=== PATIENT | male | born 1990 | race Caucasian/White ===

== ENCOUNTER 2024-12-04 09:48 | Outpatient (OUT) | payer OTHER, SELFPAY ==
--- OUTSIDE RECORDS SUMMARY | 2024-12-04 09:56 | XMS_ITS | Clinical Summary ---
Author Organization [facility] tem Address [id number] [address] [place] [address] Care Team Providers Care Wing Scorer Name Role Phone No Pcp, No Pcp Primary Care Provider Unavailabl e Allergies No known active allergies Medications ibuprofen (MOTRIN) 800 mg tablet Take 1 tablet (800 mg total) by mouth every 8 (eight) hours as needed for pain. 30 tablet 10/13/2024 Active Active Problems No known active problems Encounters Date Type Department Care Team Description 10/13/2024 4:53 PM EDT - 10/13/2024 7:31 PM EDT Emergency [facility] - Emergency [address] [place] [id number] Noemí Conde DO Epididymitis (Primary Dx) Discharge Disposition: Home 10/13/2024 Travel from Last 3 Months Immunizations Immunization Administration Dates Next Due Tdap 10/18/2016 Social History Tobacco Use Types Packs/Day Years Used Date Smoking Tobacco: Never Smokeless Tobacco: Never Alcohol Use Standard Drinks/Week Comments No 0 (1 standard drink = 0.6 oz pur e alcohol) Childcare Answer Date Recorded Childcare Unknown 09/19/2018 Employment Answer Date Recorded Employment Unknown 09/19/2018 Hunger Screening Answer Date Recorded Within the past 12 months we worried whether our food would run out before we got money to buy more. Never True 10/13/2024 Within the past 12 months th e food we bought just didn't last and we didn't have money to get more. Never True 10/13/2024 Purpose - Life Answer Date Recorded Purpose and direction in life Unknown Sex and Gender Information Value Date Recorded Sex Assigned at Not on file Legal Sex Male 11:48 AM EDT Gender Identity Not on file Sexual Orientation Not on file Last Filed Vital Signs Vital Sign Reading Time Taken Comments Blood Pressure 131/83 10/13/2024 7:20 PM EDT Pulse 71 10/13/2024 7:20 PM EDT Temperature 36.8 C (98.2 F) 10/13/2024 5:00 PM EDT Respiratory Rate 17 10/13/2024 5:00 PM EDT Oxygen Saturation 98% 10/13/2024 7:20 PM EDT Inhaled Oxygen Concentration - - Weight 117.9 kg (260 lb) 10/13/2024 5:00 PM EDT Height 188 cm (6' 2 ) 10/13/2024 5:00 PM EDT Body Mass Index 33.38 10/13/2024 5:00 PM EDT Plan of Treatment Health Maintenance Due Date Last Done Comments Depression Screening 2004 Adult BMI Follow Up Plan 2010 Influenza Vaccine 12/09/2024 Adult BMI Screening 10/13/2025 10/13/2024 Tobacco Screening 10/13/2025 10/13/2024 DTaP,Tdap and Td Vaccines (6 - Td or Tdap) 10/18/2026 10/18/2016, 11/13/1998, 09/19/1997, Additional history exists Medical Devices Not on file Procedures Procedure Name Priority Date/Time Associated Diagnosis Comments US SCROTUM WITH DUPLEX STAT 10/13/2024 5:57 PM EDT POCT NURSING URINE MACROSCOPIC UA Routine 10/13/2024 5:27 PM EDT ER EXTRA URINE MARBLE STAT 10/13/2024 5:09 PM EDT ER EXTRA URINE CULTURE STAT 10/13/2024 5:09 PM EDT ER EXTRA URINE STAT 10/13/2024 5:09 PM EDT CHLAMYDIA/GONORRHOEA E BY PCR, URINE STAT 10/13/2024 5:09 PM EDT from Last 3 Months Results * Ultrasound scrotum for TORSION with duplex (10/13/2024 5:57 PM EDT) Anatomical Region Laterality Modality Body Ultrasound 10/13/2024 6:06 PM EDT Narrative 10/13/2024 6:06 PM EDT CLINICAL INFORMATION: Testicular pain Testicular Torsion. TECHNIQUE: Real-time sonographic evaluation of the scrotum and testes was performed with ellison scale and color flow imaging. Real time ellison scale, color flow imaging and duplex spectral Doppler waveform analysis evaluation was performed of the major arterial inflow and venous outflow structures of the testicles with arterial and venous spectral waveforms obtained and reviewed in view of the clinical history of testicular pain Testicular Torsion . Duplex spectral Doppler document arterial and venous spectral waveforms documented within the major arterial inflow and venous outflow of both testicles. Arterial and venous Doppler duplex spectral waveforms were evaluated. COMPARISON: No relevant prior studies available. FINDINGS: Right testicle measures 5.5 x 2.8 x 3.4 cm. Left testicle measures 5.3 x 2.5 x 3.2 cm. No significant extratesticular fluid collection. Probable small right varicocele. The arterial and venous waveforms are within normal limits. IMPRESSION: * Unremarkable sonographic appearance of the testes. No definitive sonographic evidence of testicular torsion. Finalized by Giovanni Desai MD on 10/13/2024 6:06 PM Procedure Note Giovanni Desai MD - 10/13/2024 CLINICAL INFORMATION: Testicular pain Testicular Torsion. TECHNIQUE: Real-time sonographic evaluation of the scrotum and testes was performedwith ellison scale and color flow imaging. Real time ellison scale, color flow imaging and duplex spectral Dopplerwaveform analysis evaluation was performed of the major arterial inflowand venous outflow structures of the testicles with arterial and venousspectral waveforms obtained and reviewed in view of the clinical historyof testicular pain Testicular Torsion . Duplex spectral Doppler document arterial and venous spectral waveformsdocumented within the major arterial inflow and venous outflow of bothtesticles. Arterial and venous Doppler duplex spectral waveforms wereevaluated. COMPARISON: No relevant prior studies available. FINDINGS: Right testicle measures 5.5 x 2.8 x 3.4 cm. Left testicle measures 5.3 x 2.5 x 3.2 cm. No significant extratesticular fluid collection. Probable small right varicocele. The arterial and venous waveforms are within normal limits. IMPRESSION: * Unremarkable sonographic appearance of the testes. No definitivesonographic evidence of testicular torsion. Finalized by Giovanni Desai MD on 10/13/2024 6:06 PM us Noemí Conde DO IMG US ORDERABLES Final Resu lt * (ABNORMAL) POCT Nursing Urine Macroscopic UA (10/13/2024 5:27 PM EDT) POC Urine Specific [place] >=1.030(A) 1.010, 1.015, 1.020, 1.025 10/13/2024 5:20 PM EDT [facility] POC Urine Leukocyte Esterase Negative Negative 10/13/2024 5:20 PM EDT [facility] POC Urine Nitrite Negative Negative 10/13/2024 5:20 PM EDT [facility] POC Urine pH 6.0 5.0, 6.0, 6.5, 7.0, 7.5, 8.0, 8.5, 5.5 10/13/2024 5:20 PM EDT [facility] POC Urine Protein Negative Negative 10/13/2024 5:20 PM EDT [facility] POC Urine Glucose Negative Negative 10/13/2024 5:20 PM EDT [facility] POC Urine Ketones Negative Negative 10/13/2024 5:20 PM EDT [facility] POC Urine Urobilinogen 0.2 E.U./dL 10/13/2024 5:20 PM EDT [facility] POC Urine Bilirubin Negative Negative 10/13/2024 5:20 PM EDT [facility] POC Urine Blood/HGB Negative Negative 10/13/2024 5:20 PM EDT [facility] Urine 10/13/2024 5:27 PM EDT 10/13/2024 5:20 PM EDT Noemí Conde DO POINT OF CARE TEST ORDERABLE S Final Result [address] [place] [address], [place] * Extra Urine [place] (10/13/2024 5:09 PM EDT) Extra Tube Auto Resulted 10/13/2024 7:01 PM EDT [facility] Urine Urine specimen collection, clean catch / Unknown 10/13/2024 5:09 PM EDT 10/13/2024 5:35 PM EDT us Noemí Conde DO URINE ORDERABLES Final Resul t Performing Organization Address City/[facility] Co de Phone Number [address] [place] [address], [place] * Extra Urine Culture (10/13/2024 5:09 PM EDT) Extra Tube Auto Resulted 10/13/2024 7:01 PM EDT [facility] Urine Urine specimen collection, clean catch / Unknown 10/13/2024 5:09 PM EDT 10/13/2024 5:35 PM EDT us Noemí Conde DO URINE ORDERABLES Final Resul t Performing Organization Address City/[facility] Co de Phone Number [address] [place] [address], [place] * Chlamydia/Gonorrhoeae by PCR, Urine (10/13/2024 5:09 PM EDT) GONORRHOEAE PCR, U Negative Negative 10/14/2024 10:07 AM EDT [facility] Comment:Neisseria gonorrhoea e not detected by nucleic acid amplification. This does not exclude the possibility of infection because results are dependent on adequate specimen collection. CHLAMYDIA PCR, U Negative Negative 10/14/2024 10:07 AM EDT [facility] Comment:Chlamydia trachomati s not detected by nucleic acid amplification. This does not exclude the possibility of infection because results are dependent on adequate specimen collection. Urine Urine specimen collection, clean catch / Unknown 10/13/2024 5:09 PM EDT 10/13/2024 5:34 PM EDT us Noemí Conde DO MICROBIOLOGY - GENERAL ORDER DORIS Final Result [facility] [address] [place] [address], [place] [phone] * Extra Urine (10/13/2024 5:09 PM EDT) Extra Tube Auto Resulted 10/13/2024 7:01 PM EDT [facility] Urine Urine specimen collection, clean catch / Unknown 10/13/2024 5:09 PM EDT 10/13/2024 5:34 PM EDT us Noemí Conde DO URINE ORDERABLES Final Resul t [facility] [address] [place] [address], from Last 3 Months Insurance [facility] Care Teams Wing Scorer Relationship Specialty Start Date End Date No Pcp, [place] [address] PCP - General Family Medicine 05/08/24
--- OUTSIDE RECORDS SUMMARY | 2024-12-04 09:56 | XMS_ITS | Clinical Summary ---
Author Organization [facility] Address [address], [address] [place] [address] Care Team Providers Care Owner Spa Director Name Role Phone Unavailable Primary Care Provider Unavailabl e Social History Tobacco Use Types Packs/Day Years Used Date Smoking Tobacco: Never Assessed Sex and Gender Information Value Date Recorded Sex Assigned at Not on file Legal Sex Male 8:15 AM EDT Gender Identity Not on file Sexual Orientation Not on file Plan of Treatment Upcoming Encounters Date Type Department Care Team (Late st Contact Info) Description 12/05/2024 11:00 AM EDT Office Visit [facility] Primary Care [address] [place] [address] [address] [place] [address] Lennie Lopez, LEARNING SUPPORT AIDE - SLITTER CREASER SLOTTER HELPER [address] [place] [address] C-est care Health Maintenance Due Date Last Done Comments Depression Screen 2004 Varicella vaccine (1 of 2 - 13+ 2-dose series) 2005 HIV screen 07/23/2007 Hepatitis C screen 2010 DTaP/Tdap/Td vaccine (1 - Tdap) 07/23/2011 Hepatitis B vaccine (1 of 3 - 19+ 3-dose series) 07/23/2011 COVID-19 Vaccine ( - 2023-2 5 season) 2023 Flu vaccine (#1) 11/08/2024 HPV vaccine (No Doses Required) Completed Hepatitis A vaccine Aged Out No longe r eligible based on patient's age to complete this topic Hib vaccine Aged Out No longer eligi ble based on patient's age to complete this topic Meningococcal (ACWY) vaccine Aged Out No longer eligible based on patient's age to complete this topic Meningococcal B vaccine Aged Out No l onger eligible based on patient's age to complete this topic Pneumococcal 0-49 years Vaccine Aged Out No longer eligible based on patient's age to complete this topic Polio vaccine Aged Out No longer elig ible based on patient's age to complete this topic
--- OUTSIDE RECORDS SUMMARY | 2024-12-04 09:56 | XMS_ITS | Clinical Summary ---
Author Organization [facility] Address [address] [place] [address] Care Team Providers Care Learning Support Aide Name Role Phone Unallocated, Noms Provider Primary Care Provi roman Allergies No known active allergies Medications methylPREDNISol one (Medrol Dospak) 4 MG tabletsIndicati ons:Effusion of right knee,Internal derangement of right knee Follow schedule on package instructions 21 tablet Active Active Problems No known active problems Social History Tobacco Use Types Packs/Day Years Used Date Smoking Tobacco: Never Smokeless Tobacco: Never Tobacco Cessation:Counseling Given: Not Answered Alcohol Use Standard Drinks/Week Comments Yes 0 (1 standard drink = 0.6 oz pur e alcohol) Sex and Gender Information Value Date Recorded Sex Assigned at Not on file Legal Sex Male 2:34 PM EST Gender Identity Not on file Sexual Orientation Not on file Plan of Treatment Health Maintenance Due Date Last Done Comments Influenza Vaccine (#1) 2024 Insurance [facility] Care Teams Learning Support Aide Relationship Specialty Start Date End Date Unallocated, Noms Provider, [address] [place] [address] PCP - General Family Medicine 05/14/24
--- OUTSIDE RECORDS SUMMARY | 2024-12-04 09:56 | XMS_ITS | Clinical Summary ---
Author Organization [facility] Address [address] [facility] [place] [address] Care Team Providers Care Car Shifter Name Role Phone Unavailable Primary Care Provider Unavailabl e Source Comments The following information is NOT included in Care Everywhere downloads:Psychiatric notes, ECG results, Cardiac Rehab notes, Pulmonary Function notes, data from SmartForms (includes but not limited toPregnancy data,audiograms, eye exams, pre-surgical evaluation notes, well-child exam data).[facility] Medications No known medications Active Problems No known active problems Immunizations Immunization Administration Dates Next Due DTP (CVX=01) 09/20/1993,1992 DTaP, unspecified formulatio n (XQQ=828) 11/13/1998,09/19/1997 Hep B (peds/adol, 3-dose) (CVX=08) 09/20/1993, Hep B/HIB (Comvax) (CVX=51) 09/19/1997 Hib, unspecified formulation (CVX=17) 09/20/1993 ,1992 MMR, Ylgfdfh-Xitfn-Enqitsj (CVX=03) 11/13/1998,0 09/20/1993 Polio, oral (OPV) (CVX=02) 11/13/1998,,09/20/1993,1992 TST-PPD, intradermal (PPD) (CVX=96) 02/20/2021 Tdap (FQS=490) 10/18/2016 Social History Tobacco Use Types Packs/Day Years Used Date Smoking Tobacco: Every Day Cigarettes Smokeless Tobacco: Never Tobacco Cessation:Ready to Q uit: No; Counseling Given: Yes Sex and Gender Information Value Date Recorded Sex Assigned at Not on file Legal Sex Male 7:26 PM EST Gender Identity Not on file Sexual Orientation Not on file Last Filed Vital Signs Vital Sign Reading Time Taken Comments Blood Pressure 127/84 02/20/2021 9:33 PM EST Pulse 76 02/20/2021 9:33 PM EST Temperature 36.4 C (97.6 F) 02/20/2021 9:33 PM EST Respiratory Rate 16 02/20/2021 9:33 PM EST Oxygen Saturation 97% 02/20/2021 9:33 PM EST Inhaled Oxygen Concentration - - Weight 117.1 kg (258 lb 3.2 oz) 02/20/2021 9:33 PM EST Height 185.4 cm (6' 1 ) 02/20/2021 9:33 PM EST Body Mass Index 34.07 02/20/2021 9:33 PM EST Plan of Treatment Health Maintenance Due Date Last Done Comments HIV Test 07/23/2007 Hepatitis C Antibody 2010 Hepatitis A (HAV) Vaccine (optional start 19+ years) 07/23/2011 HPV Vaccine (optional start 27-45 years) 07/23/2019 COVID-19 Vaccine (2023-2 5 season) 2023 Influenza Vaccine (#1) 2025 Tetanus (Td or Tdap) Booster 10/18/2026 10/18/2016 Shingles (RZV) Vaccine (1 of 2) 2042 Hepatitis B (HBV) Vaccine Completed 1997, 09/20/1993, 1992 Tdap Booster Completed 10/18/2016 Pneumococcal Vaccine(s) Aged Out No l onger eligible based on patient's age to complete this topic
--- NOTE | 2024-12-04 10:02 | CT_ITS ---
The [address] [address] Patient Name: ASAF JOHNSON MRN: [facility]:[id number] date: 1990 Sex: M Assigned Patient Location: CT Current Patient Location: CT Accession/Order Number: [id number] Exam Date: 12/04/2024 11:20 Report Date: 12/04/2024 12:10 At the request of: COOKIE GAINES NP Procedure: CT abdomen pelvis w con CT ABDOMEN AND PELVIS WITH CONTRAST COMPARISON: None CLINICAL DATA: Right testicular pain and history of varicocele. Spiral images were obtained through the abdomen pelvis following oral and [address] exam was performed using one or more following dose reduction techniques: Automated exposure control, adjustment of the mA and/or kV according to patient size, or use of iterative reconstruction technique. Limited cuts through the lung bases show no contributory pulmonary findings. There are few tiny distal paraesophageal lymph nodes. No calcified gallstones are identified. No intrahepatic masses are seen. The spleen, pancreas and adrenal glands show no acute findings. There are symmetric bilateral renal nephrograms, without hydronephrosis. The abdominal aorta is normal caliber. There are small retroperitoneal lymph nodes, largest at the gastrohepatic ligament with short axis dimension of 1 cm. There is no ascites. The small bowel loops are normal caliber. There is mild colonic stool, predominantly on the right. The bony structures are intact. Images through the pelvis show no appendiceal inflammation. There is no dilated small bowel. There is mild distal colonic stool. No diverticular disease is seen. The prostate is within normal limits for size. The urinary bladder is unremarkable. No ascites is seen. There are small inguinal lymph nodes with fatty tsering. The imaged scrotum shows no obvious CT abnormalities. Ultrasound is more sensitive for evaluating the scrotal contents, if not already performed elsewhere. CT/CT abdomen pelvis w con IMPRESSION: NO ACUTE INTRA-ABDOMINAL OR PELVIC FINDINGS. SCROTAL ULTRASOUND COULD BE CONSIDERED, IF NOT PREVIOUSLY PERFORMED ELSEWHERE. Impression dictated by: Yue Jane M.D. 12/04/2024 12:10 PM Dictation Location: [employer] [facility] Electronically authenticated by: [id number] Y Date: 12/04/2024 12:10
== END 2024-12-04 09:49 | disposition home or self-care (01) ==
PROVIDERS: Visit Provider Nurse Practitioner
DX: I86.1 Scrotal varices (principal)
CPT/HCPCS: 74177; Q9967